=== PATIENT | male | born 1995 | race African-American/Black ===

== ENCOUNTER 2017-01-31 16:49 | Emergency (ER) | payer OTHER ==
[~2017-01-31] VITALS: Ht 182.9 cm; Wt 68.0 kg
[2017-01-31] MEDS ORDERED: AZITHROMYCIN 250 MG TAB PO ONE (17:45)
[2017-01-31] MEDS ORDERED: cefTRIAXone SOD 250 MG VIAL (J0696) IM ONE (17:45)
[2017-01-31 18:43] VITALS: BP 119/71
== END 2017-01-31 18:44 | disposition home or self-care (01) ==
LOC: M ED 18:35
DX: Z20.2 Contact with and (suspected) exposure to infections with a predominantly sexual mode of transmission (principal)
CPT/HCPCS: 96372; 99282; J0696

== ENCOUNTER 2018-03-17 21:20 | Emergency (ER) | payer OTHER ==
[2018-03-17] MEDS ORDERED: DERMABOND TOPICAL SKIN ADHESIVE TOP (23:15)
== END 2018-03-17 23:23 | disposition home or self-care (01) ==
LOC: M ED 21:20
DX: S01.81XA Laceration without foreign body of other part of head, initial encounter (principal); Y04.8XXA Assault by other bodily force, initial encounter; Y92.89 Other specified places as the place of occurrence of the external cause
CPT/HCPCS: 12011